=== PATIENT | male | born 1935 | race Caucasian/White ===

== ENCOUNTER 2017-05-08 20:07 | Emergency (ER) | payer MEDICARE, BC ==
--- NOTE | 2017-05-08 21:24 | ER Document Report ---
ED General - General Chief Complaint: Hand Pain Stated Complaint: LEFT HAND PAIN Time Seen by Provider: 05/08/17 21:10 Notes: Patient is an 81-year-old male on clopidogrel who presents with bruising over the dorsum of the left hand. Patient states that this was noted shortly after he came inside after working on his yard for a prolonged period of time. States initially was a small area of swelling at the level of the MCP of the second digit and when he placed ice over the area of bruising then spread to the rest of the hand. Denies any pain to the area. No limited range of motion. No weakness or numbness. No history of similar symptoms in the past. Nothing improves or worsens his symptoms. He has not seen a primary care doctor regarding today's concerns. TRAVEL OUTSIDE OF THE [place] IN LAST 30 DAYS: No - Related Data Allergies/Adverse Reactions: No Known Allergies Allergy (Unverified 05/08/17 20:20) Past Medical History - General Information source: Patient - Social History Smoking Status: Never Smoker Frequency of alcohol use: None Drug Abuse: None Lives with: Family Family History: Reviewed & Not Pertinent Patient has suicidal ideation: No Patient has homicidal ideation: No Renal/ Medical History: Denies: Hx Peritoneal Dialysis Review of Systems - Review of Systems Notes: Constitutional: Negative for fever. HENT: Negative for sore throat. Eyes: Negative for visual changes. Cardiovascular: Negative for chest pain. Respiratory: Negative for shortness of breath. Gastrointestinal: Negative for abdominal pain, vomiting or diarrhea. Genitourinary: Negative for dysuria. Musculoskeletal: Negative for back pain. Skin: Positive for ecchymosis over the dorsum of the left hand Neurological: Negative for headaches, weakness or numbness. 10 point ROS negative except as marked above and in HPI. Physical Exam - Vital signs Vitals: Temp Pulse Resp BP Pulse Ox 97.7 F 84 16 165/97 H 95 05/08/17 20:18 05/08/17 20:18 05/08/17 20:18 05/08/17 20:18 05/08/17 20:18 Interpretation: Hypertensive Notes: PHYSICAL EXAMINATION: GENERAL: Well-appearing, well-nourished and in no acute distress. HEAD: Atraumatic, normocephalic. EYES: sclera anicteric, conjunctiva are normal. ENT: Moist mucous membranes. NECK: Normal range of motion LUNGS: Normal work of breathing HEART: 2+ radial pulses bilaterally EXTREMITIES: no pitting or edema. No cyanosis. RMU sensory motor distribution is intact bilaterally. NEUROLOGICAL: No focal neurological deficits. Moves all extremities spontaneously and on command. PSYCH: Normal mood, normal affect. SKIN: Warm, Dry, normal turgor, there is ecchymosis overlying the dorsum of the left hand Course - Re-evaluation Re-evalutation: 05/08/17 21:22 Patient presents with ecchymosis over the dorsum of the left hand in the setting of clopidogrel use. This consistent with a subcutaneous hematoma likely from a blunt injury versus an overuse injury. He has no limited range of motion, full RMU sensory and motor distribution is intact. X-ray has been obtained does not demonstrate any acute fractures. The area is not warm to the touch and his history does not suggest an acute cellulitis, crotalid bite, or any other significant injury. - Vital Signs Vital signs: Temp Pulse Resp BP Pulse Ox 98.1 F 61 17 152/72 H 95 05/08/17 22:20 05/08/17 22:20 05/08/17 22:20 05/08/17 22:20 05/08/17 22:20 - Diagnostic Test Radiology reviewed: Image reviewed, Reports reviewed Radiology results interpreted by me: 05/08/17 22:08 Left hand x-ray: No acute fracture dislocation Discharge - Discharge Clinical Impression: Spontaneous hematoma of hand Condition: Good Disposition: HOME, SELF-CARE Additional Instructions: The changes in your hand are due to his amount of blood trapped underneath her skin. This is common for patients who are on drugs like Plavix. You can keep the area wrapped and apply ice for 20 minutes every 2 hours while you are awake. This will probably take 3-4 weeks completely resolved. Please return if you develop increasing pain to the area, difficulty moving your fingers, develop a fever greater than 101F, noticed spreading redness from the area or have any other symptoms that are concerning to you. Referrals: RADHA ZHANG MD [Primary Care Provider] - Follow up as needed
--- NOTE | 2017-05-08 21:55 | RADIOLOGY REPORT (SQ) ---
EXAM DESCRIPTION: HAND LEFT 3 VIEWS COMPLETED DATE/TIME: 05/08/2017 9:37 pm REASON FOR STUDY: left hand pain COMPARISON: None. EXAM PARAMETERS: NUMBER OF VIEWS: Three views. TECHNIQUE: AP, lateral and oblique radiographic images acquired of the left hand. LIMITATIONS: None. FINDINGS: MINERALIZATION: Normal. BONES: No acute fracture or dislocation. No worrisome bone lesions. Degenerative changes noted at t he thumb base. There degenerative changes noted in the interphalangeal joint spaces JOINTS: No effusions. SOFT TISSUES: No soft tissue swelling. No foreign body. OTHER: No other significant finding. IMPRESSION: No acute fracture dislocation identified. Degenerative changes noted at the thumb base and scattered throughout the interphalangeal joint spaces. TECHNICAL DOCUMENTATION: JOB ID: [id number] [employer]- All Rights Reserved
[2017-05-08 22:21] VITALS: BP 152/72
== END 2017-05-08 22:30 | disposition home or self-care (01) ==
LOC: ER 20:07
DX: S60.222A Contusion of left hand, initial encounter (principal); X58.XXXA Exposure to other specified factors, initial encounter
CPT/HCPCS: 99283

== ENCOUNTER 2017-12-29 15:16 | Emergency (ER) | payer MEDICARE, BC ==
[2017-12-29] MEDS ORDERED: ACETAMINOPHEN 325 MG TABLET PO ONE (15:25)
--- NOTE | 2017-12-29 15:51 | RADIOLOGY REPORT (SQ) ---
EXAM DESCRIPTION: SHOULDER RIGHT 2 OR MORE VIEWS COMPLETED DATE/TIME: 12/29/2017 3:42 pm REASON FOR STUDY: possible dislocation COMPARISON: None. NUMBER OF VIEWS: Three views right shoulder LIMITATIONS: None. FINDINGS: Superior displacement of the distal clavicle at the AC joint. AC joint relatively maintai rupert in width. Generalized osteopenia without fracture. No evidence of shoulder dislocation. Right lung clear. OTHER: No other significant finding. IMPRESSION: Findings suggesting grade 3 AC separation. TECHNICAL DOCUMENTATION: JOB ID: [id number] Reading location - IP/workstation name: [email or web address]
--- NOTE | 2017-12-29 16:11 | ER Document Report ---
ED Extremity Problem, Upper - General Mode of Arrival: Ambulatory Information source: Patient TRAVEL OUTSIDE OF THE [place] IN LAST 30 DAYS: No <BRADY DAVIS - Last Filed: 12/29/17 22:30> <JM PILLAI - Last Filed: 12/29/17 22:55> - General Chief Complaint: Shoulder Injury Stated Complaint: RIGHT SHOULDER INJURY Time Seen by Provider: 12/29/17 16:00 Notes: Patient is an 82-year-old male that presents to the emergency department today with complaints of right shoulder pain. Patient states he was "cleaning up some trash" at his house when he tripped over something causing him to fall. Patient states he felt a pop in his right shoulder when he fell. Patient states he did not injure anything else during the fall. Patient denies hitting his head or his neck. (BRADY DAVIS) - Related Data Allergies/Adverse Reactions: No Known Allergies Allergy (Unverified 05/08/17 20:20) Past Medical History - General Information source: Patient - Social History Smoking Status: Former Smoker Cigarette use (# per day): No Chew tobacco use (# tins/day): No Frequency of alcohol use: None Drug Abuse: None Lives with: Family Family History: Reviewed & Not Pertinent Patient has suicidal ideation: No Patient has homicidal ideation: No - Past Medical History Cardiac Medical History: Reports: Hx Hypercholesterolemia, Hx Hypertension Endocrine Medical History: Reports: Hx Diabetes Mellitus Type 2 Past Surgical History: Reports: Hx Cardiac Catheterization - stents <BRADY DAVIS - Last Filed: 12/29/17 22:30> Review of Systems - Review of Systems Constitutional: No symptoms reported EENT: No symptoms reported Cardiovascular: No symptoms reported Respiratory: No symptoms reported Gastrointestinal: No symptoms reported Genitourinary: No symptoms reported Male Genitourinary: No symptoms reported Musculoskeletal: See HPI, Joint pain - right shoulder Skin: No symptoms reported Hematologic/Lymphatic: No symptoms reported Neurological/Psychological: No symptoms reported -: Yes All other systems reviewed and negative <BRADY DAVIS - Last Filed: 12/29/17 22:30> Physical Exam <BRADY DAVIS - Last Filed: 12/29/17 22:30> <JM PILLAI - Last Filed: 12/29/17 22:55> - Vital signs Vitals: Temp Pulse Resp BP Pulse Ox 98.0 F 74 16 163/69 H 96 12/29/17 15:28 12/29/17 15:28 12/29/17 15:28 12/29/17 15:28 12/29/17 15:28 - Notes Notes: PHYSICAL EXAM GENERAL: Alert, interacts well. No acute distress. HEAD: Normocephalic, atraumatic. EYES: Pupils equal, round, and reactive to light. Extraocular movements intact. ENT: Oral mucosa moist, tongue midline. NECK: Full range of motion. Supple. Trachea midline. LUNGS: Clear to auscultation bilaterally, no wheezes, rales, or rhonchi. No respiratory distress. HEART: Regular rate and rhythm. No murmurs, gallops, or rubs. ABDOMEN: Soft, non-tender. Non-distended. Bowel sounds present in all 4 quadrants. No guarding, rigidity, or rebound. EXTREMITIES: Able to pronate and supinate RUE without difficulty or pain. Patient able to externally rotate and elevate right shoulder without difficulty , internal rotation not tested. RUE strength 5/5. Right acromioclavicular deformity, no AC joint tenderness with palpation and patient even states that it feels better with palpation, 2+ radial pulses distally, normal sensation distally.No edema. No cyanosis. NEUROLOGICAL: Alert and oriented x3. Normal speech. PSYCH: Normal affect, normal mood. SKIN: Warm, dry, normal turgor. No rashes or lesions noted. (BRADY DAVIS) Course <BRADY DAVIS - Last Filed: 12/29/17 22:30> <JM PILLAI - Last Filed: 12/29/17 22:55> - Re-evaluation Re-evalutation: 12/29/17 16:13 X-ray shows grade 3 AC separation on the right, no evidence of fracture dislocation, physical examination is consistent with this, full range of motion. Patient will be placed in a shoulder immobilizer for comfort, encouraged to do range of motion exercises, referred to orthopedics, given limited prescription for hydrocodone at night. Discharged home. (JM PILLAI) - Vital Signs Vital signs: Temp Pulse Resp BP Pulse Ox 98.4 F 64 18 144/63 H 96 12/29/17 16:46 12/29/17 16:46 12/29/17 16:46 12/29/17 16:46 12/29/17 16:46 Procedures - Immobilization Right Shoulder Pre-Proc Neuro Vasc Exam: Normal Immobilizer type: Shoulder immobilizer Performed by: PCT Post-Proc Neuro Vasc Exam: Normal, Unchanged from pre-exam Alignment checked and good: Yes <JM PILLAI - Last Filed: 12/29/17 22:55> Discharge <BRADY DAVIS - Last Filed: 12/29/17 22:30> <JM PILLAI - Last Filed: 12/29/17 22:55> - Discharge Clinical Impression: Separation of right acromioclavicular joint, type 3 Qualifiers: Encounter type: initial encounter Qualified Code(s): S43.101A - Unspecified dislocation of right acromioclavicular joint, initial encounter Hypertension Qualifiers: Hypertension type: essential hypertension Qualified Code(s): I10 - Essential ( primary) hypertension Condition: Stable Disposition: HOME, SELF-CARE Additional Instructions: AC Joint Sprain The injury to your shoulder caused an acromioclavicular (AC) sprain. This is often called a "shoulder separation," involving the joint between the point of the shoulder-blade and the collarbone. This injury, while quite painful, will usually heal well without any permanent problems. The usual treatment is cold packs and a sling. (In rare cases, a shoulder separation may require surgery.) The shoulder will need to be rested until the pain and swelling decrease. With milder AC sprains, the shoulder can be used again within a few days, although motions such as throwing may be painful for months. The usual guideline is "if it hurts, don't do it." Your physician has assessed the severity of your shoulder separation. It is important that instructions be followed exactly concerning work, sports, and follow-up care. Your treatment plan may change based on the results of further check-ups. You have been given a prescription for narcotic pain medication, this is a narcotic pain medication. It can make you constipated. Use MiraLAX or other similar stool softener to prevent constipation. Do not drive while taking narcotics. Prescriptions: Hydrocodone/Acetaminophen [[place] 5-325 mg Tablet] 1 tab PO Q4HP PRN #10 tablet PRN Reason: For Pain Referrals: RADHA ZHANG MD [Primary Care Provider] - Follow up as needed KARAN MENA MD [ACTIVE STAFF] - Follow up tomorrow (Call first thing in the morning to arrange follow-up appointment.) Scribe Attestation: 12/29/17 22:55 I personally performed the services described in the documentation, reviewed and edited the documentation which was dictated to the scribe in my presence, and it accurately records my words and actions. (JM PILLAI) Scribe Documentation - Scribe Written by Scribe:: John Bedolla, 12/29/2017 2236 acting as scribe for :: Jack <BRADY DAVIS - Last Filed: 12/29/17 22:30>
[2017-12-29 16:47] VITALS: BP 144/63
== END 2017-12-29 16:46 | disposition home or self-care (01) ==
LOC: ER 15:16
DX: S43.101A Unspecified dislocation of right acromioclavicular joint, initial encounter (principal); W01.0XXA Fall on same level from slipping, tripping and stumbling without subsequent striking against object, initial encounter; E78.00 Pure hypercholesterolemia, unspecified; I10 Essential (primary) hypertension
CPT/HCPCS: 99283; 73030; L3650; A9270

== ENCOUNTER 2019-02-08 12:31 | Emergency (ER) | payer MEDICARE, BC ==
[2019-02-08] MEDS ORDERED: CLINDAMYCIN 600 MG/D5W RTU 600 MG/50 ML RTUPB IV ONE (12:49)
--- NOTE | 2019-02-08 12:52 | ER Document Report ---
ED Medical Screen (RME) - General Chief Complaint: Hand Swelling Stated Complaint: RIGHT HAND PAIN, SWELLING Time Seen by Provider: 02/08/19 12:48 Primary Care Provider: RADHA ZHANG MD [Primary Care Provider] - Follow up as needed Mode of Arrival: Ambulatory Information source: Patient Notes: Patient presents with a 2-day history of right hand pain and swelling. Patient with erythema to dorsal aspect of right hand that extends up the forearm with streaking to the right upper arm into the axilla. Patient denies any fever. Patient denies any trauma to the hand. Patient states that he may have been bit by an insect possibly. hx: Hypertension, dyslipidemia, hypothyroid, BPH I have greeted and performed a rapid initial assessment of this patient. A comp rehensive ED assessment and evaluation of the patient, analysis of test results and completion of the medical decision making process will be conducted by additional ED providers. TRAVEL OUTSIDE OF THE [place] IN LAST 30 DAYS: No - Related Data Allergies/Adverse Reactions: No Known Allergies Allergy (Verified 02/08/19 12:32) Past Medical History - Social History Chew tobacco use (# tins/day): No Frequency of alcohol use: None Drug Abuse: None - Past Medical History Cardiac Medical History: Reports: Hx Hypercholesterolemia, Hx Hypertension Endocrine Medical History: Reports: Hx Diabetes Mellitus Type 2 Renal/ Medical History: Denies: Hx Peritoneal Dialysis Past Surgical History: Reports: Hx Cardiac Catheterization - stents Physical Exam - Vital signs Vitals: Temp Pulse Resp BP Pulse Ox 97.6 F 76 18 159/61 H 95 02/08/19 12:35 02/08/19 12:35 02/08/19 12:35 02/08/19 12:35 02/08/19 12:35 - Extremities General upper extremity: Tender, Edema. No: Normal color - Erythema, tenderness, swelling to right upper extremity with lymphangitic streaking to the right upper arm Course - Vital Signs Vital signs: Temp Pulse Resp BP Pulse Ox 97.6 F 76 18 159/61 H 95 02/08/19 12:35 02/08/19 12:35 02/08/19 12:35 02/08/19 12:35 02/08/19 12:35 Doctor's Discharge - Discharge Referrals: RADHA ZHANG MD [Primary Care Provider] - Follow up as needed
[2019-02-08 13:43] LABS: ABSOLUTE EOSINOPHILS # (AUTO) 0.2 10^3/uL (0.0-0.6); ABSOLUTE LYMPHOCYTES (AUTO) 2.5 10^3/uL (0.5-4.7); ABSOLUTE MONOCYTES (AUTO) 0.6 10^3/uL (0.1-1.4); ABSOLUTE NEUT (AUTO) 5.8 10^3/uL (1.7-8.2); BASOPHILS % (AUTO) 0.4 % (0-2); EOSINOPHILS % (AUTO) 1.8 % (0-6); HEMOGLOBIN 13.8 g/dL (13.5-17.0); LYMPHOCYTES % (AUTO) 27.3 % (13-45); MEAN CORPUSCULAR HEMOGLOBIN 29.8 pg (27.0-33.4); MEAN CORPUSCULAR HGB CONC 34.4 g/dL (32.0-36.0); MEAN CORPUSCULAR VOLUME 87 fl (80-97); MONOCYTES % (AUTO) 6.4 % (3-13); PLATELET COUNT 160 10^3/uL (150-450); RED BLOOD COUNT 4.62 10^6/uL (4.35-5.55); RED CELL DISTRIBUTION WIDTH 14.4 % (11.5-14.0); SEGMENTED NEUTROPHILS % (AUTO) 64.1 % (42-78); TOTAL CELLS COUNTED % (AUTO) 100 %; WHITE BLOOD COUNT 9.1 10^3/uL (4.0-10.5)
[2019-02-08 13:51] LABS: ANION GAP 9 (5-19); BLOOD UREA NITROGEN 13 mg/dL (7-20); CARBON DIOXIDE 31 mmol/L (22-30); CHLORIDE 100 mmol/L (98-107); GLUCOSE 181 mg/dL (75-110); POTASSIUM 3.2 mmol/L (3.6-5.0); SODIUM 139.5 mmol/L (137-145)
--- NOTE | 2019-02-08 13:57 | ER Document Report ---
ED Extremity Problem, Upper - General Chief Complaint: Hand Swelling Stated Complaint: RIGHT HAND PAIN, SWELLING Time Seen by Provider: 02/08/19 12:48 Primary Care Provider: RADHA ZHANG MD [Primary Care Provider] - Follow up tomorrow Mode of Arrival: Ambulatory Notes: Patient says that his right hand and forearm have become red and swollen over the past couple of days. Patient is right-hand dominant. He awakened from sleep and noticed that he had what looked like a bruise on the dorsal aspect of his right hand, near the distal fourth metacarpal. On Saturday, patient noticed that the area was beginning to turn red and swell and its continue to swell since then. Has never had anything like this before. Not aware of any breaks in the skin. Does not recall any possible insect bite or sting. The area does not itch, it is only painful if he holds his hand down. Has not been aware of any fever. Patient is a qst-frthpti-muzwpffun diabetic. Takes baby aspirin for thinning his blood. TRAVEL OUTSIDE OF THE [place] IN LAST 30 DAYS: No - Related Data Allergies/Adverse Reactions: No Known Allergies Allergy (Verified 02/08/19 12:32) Past Medical History - General Information source: Patient - Social History Smoking Status: Former Smoker Chew tobacco use (# tins/day): No Frequency of alcohol use: None Drug Abuse: None Family History: Reviewed & Not Pertinent Patient has suicidal ideation: No Patient has homicidal ideation: No - Past Medical History Cardiac Medical History: Reports: Hx Hypercholesterolemia, Hx Hypertension Endocrine Medical History: Reports: Hx Diabetes Mellitus Type 2, Hx Hypothyroidism Renal/ Medical History: Reports: Other - State problems. Past Surgical History: Reports: Hx Cardiac Catheterization - stents Review of Systems - Review of Systems Notes: REVIEW OF SYSTEMS: CONSTITUTIONAL : Denies fever. EENT: Denies eye, ear, nose or mouth or throat pain or other symptoms. RESPIRATORY: Denies cough, chest congestion, or shortness of breath. GASTROINTESTINAL: Denies abdominal pain or nausea, vomiting, or diarrhea. MUSCULOSKELETAL: Denies back or neck pain. Denies joint pain or swelling. SKIN: See HPI. NEUROLOGICAL: Denies LOC or altered mental status. Denies headache. Denies sensory loss or motor deficits. ALL OTHER SYSTEMS REVIEWED AND NEGATIVE. Physical Exam - Vital signs Vitals: Temp Pulse Resp BP Pulse Ox 97.6 F 76 18 159/61 H 95 02/08/19 12:35 02/08/19 12:35 02/08/19 12:35 02/08/19 12:35 02/08/19 12:35 Interpretation: Normal. No: Febrile Notes: PHYSICAL EXAMINATION: GENERAL: Well-appearing, no acute distress. HEAD: Atraumatic, normocephalic. NECK: Normal range of motion, supple. LUNGS: Breath sounds clear and equal bilaterally. HEART: Regular rate and rhythm without murmurs heard. ABDOMEN: Soft, nontender. No guarding or rebound or masses felt. Patient's dorsal right hand is significantly swollen and edematous with generalized erythema and warmth to the touch. This swelling and edema and erythema extends up the forearm to just below the elbow. There is no fluctuance noted. No cuts or scrapes of this area that would allow for bacterial entry. Nothing that appears to be an insect bite noted. Patient says the arm and hand do not itch. Has never had anything like this previously. Excellent pulses in the patient's radial artery and excellent capillary refill. Patient has a history of fso-wftkdyt-ulhccqiiw diabetes. Only blood thinner medications she takes is aspirin. Course - Re-evaluation Re-evalutation: 02/08/19 18:46 Patient was given 600 mg of clindamycin IV. I called Dr. Zhang and described the patient's findings and ask if he could see the patient for follow-up tomorrow. He says to have the patient there at 8:30 AM tomorrow morning. Lab studies were all essentially normal. Potassium level of 3.2 noted. - Vital Signs Vital signs: Temp Pulse Resp BP Pulse Ox 98.3 F 64 16 115/59 L 97 02/08/19 15:37 02/08/19 15:37 02/08/19 15:37 02/08/19 15:37 02/08/19 15:37 - Laboratory Result Diagrams: 02/08/19 13:09 02/08/19 13:09 Laboratory results interpreted by me: 02/08/19 02/08/19 13:09 13:09 RDW 14.4 H Potassium 3.2 L Carbon Dioxide 31 H Glucose 181 H - Diagnostic Test Radiology reviewed: Image reviewed, Reports reviewed - Ultrasound of the right upper extremity shows edema but no other findings. No collection of fluid. Discharge - Discharge Clinical Impression: Cellulitis of right hand excluding fingers and thumb Condition: Stable Disposition: HOME, SELF-CARE Additional Instructions: CELLULITIS: You have an infection of your skin and underlying soft tissues called cellulitis. This is due to bacteria, which can enter through any break in the skin, or even through an irritated hair follicle. Untreated, cellulitis will usually worsen. Antibiotics are required. Usually, warm packs or warm soaks, and elevation of the infected area are recommended. You should start getting better within 24 to 36 hours. Most infections respond quickly to the right medication. Follow-up care is important, however, to check for abscess (boil) formation, unsuspected foreign body, or resistant infection. If you develop fever, chills, or if the area of infection is becoming rapidly more swollen or painful, call the doctor at once. MRSA CELLULITIS: You have an infection of your skin and underlying soft tissues called cellulitis. This is due to bacteria, which can enter through any break in the skin, or even through an irritated hair follicle. Untreated, cellulitis will usually worsen and may form an abscess which requires draining. Although many bacterial organisms can cause cellulitis and abscess formations, the most likely bacteria is Methicillin-Resistant Staph Aureus, or MRSA for short. Antibiotics are required. Usually, warm packs or warm soaks, and elevation of the infected area are recommended. You should start getting better within 24 to 36 hours. Most infections respond quickly to the right medication. Follow-up care is important, however, to check for abscess (boil) formation, unsuspected foreign body, or resistant infection. If you develop fever, chills, or if the area of infection is becoming rapidly more swollen or painful, call the doctor at once. ANTIBIOTIC THERAPY: You have been given an antibiotic prescription. It's important that you take all the medication, unless instructed otherwise by your physician. Failure to complete the entire course can result in relapse of your condition. Common side effects of antibiotics include nausea, intestinal cramping, or diarrhea. Women may develop vaginal yeast infections, and babies can get yeast (thrush) in the mouth following the use of antibiotics. Contact your physician if you develop significant side effects from this medication. Allergy to this antibiotic can result in hives, wheezing, faintness, or itching. If symptoms of allergy occur, stop the medication and call the doctor. CLINDAMYCIN: You have been given a prescription for the antibiotic clindamycin. It is often prescribed for infections in the mouth, such as dental infections or abscesses, and for skin infections due to MRSA. It's important that you take all the medication, unless instructed otherwise by your physician. Failure to complete the entire course can result in relapse of your condition. Common side effects of antibiotics include nausea, intestinal cramping, or diarrhea. Women may develop vaginal yeast infections, and babies can get yeast (thrush) in the mouth following the use of antibiotics. Contact your physician if you develop significant side effects from this medication. Allergy to this antibiotic can result in hives, wheezing, faintness, or itching. If symptoms of allergy occur, stop the medication and call the doctor. FOLLOW-UP CARE: If you have been referred to a physician for follow-up care, call the [facility] office for an appointment as you were instructed or within the next two days. If you experience worsening or a significant change in your symptoms, notify the physician immediately or return to the Emergency Department at any time for re-evaluation. I have spoken with Dr. Rizo and he wishes to see you in his office at 8:30 am tomorrow morning to assess the results of the antibiotic we have prescribed. Prescriptions: Clindamycin HCl 300 mg PO QID #28 capsule Referrals: RADHA ZHANG MD [Primary Care Provider] - Follow up tomorrow
--- NOTE | 2019-02-08 14:33 | RADIOLOGY REPORT (SQ) ---
EXAM DESCRIPTION: U/S EXTREMITY NONVASCULAR LTD COMPLETED DATE/TIME: 02/08/2019 2:21 pm REASON FOR STUDY: R hand pain, swelling, ?abscess COMPARISON: Plain radiograph TECHNIQUE: Dynamic and static grayscale images acquired of the localized site of clinical concern an d recorded on PACS. Additional selected color Doppler and spectral images recorded. SITE OF CONCERN: Right hand LIMITATIONS: None. FINDINGS: SKIN AND SUBCUTANEOUS TISSUES: Extensive edema. No fluid collections. DEEP SOFT TISSUES/MUSCLES: No masses. No fluid collections. No edema. VASCULAR: No increased or decreased vascularity. No occlusions. OTHER: No other significant finding. IMPRESSION: Extensive edema. No fluid collections. TECHNICAL DOCUMENTATION: JOB ID: [id number] [employer]- All Rights Reserved Reading location - IP/workstation name: [email or web address]
[2019-02-08 15:39] VITALS: BP 115/59
== END 2019-02-08 15:45 | disposition home or self-care (01) ==
LOC: ER 12:31
DX: L03.113 Cellulitis of right upper limb (principal); E78.00 Pure hypercholesterolemia, unspecified; I10 Essential (primary) hypertension; E11.9 Type 2 diabetes mellitus without complications; E03.9 Hypothyroidism, unspecified
CPT/HCPCS: 36415; 76882; 80048; 85025; 87040; 96365; 99284

== ENCOUNTER 2020-08-01 10:37 | Inpatient (IN) | payer MEDICARE, BC ==
[2020-08-01 12:19] LABS: ABSOLUTE LYMPHOCYTES (AUTO) 1.5 10^3/uL (0.5-4.7); ABSOLUTE MONOCYTES (AUTO) 0.6 10^3/uL (0.1-1.4); ABSOLUTE NEUT (AUTO) 3.3 10^3/uL (1.7-8.2); BASOPHILS % (AUTO) 0.4 % (0-2); EOSINOPHILS % (AUTO) 0.3 % (0-6); HEMATOCRIT 36.8 % (37.9-51.0); HEMOGLOBIN 12.9 g/dL (13.5-17.0); LYMPHOCYTES % (AUTO) 27.5 % (13-45); MEAN CORPUSCULAR HEMOGLOBIN 29.5 pg (27.0-33.4); MEAN CORPUSCULAR HGB CONC 35.1 g/dL (32.0-36.0); MEAN CORPUSCULAR VOLUME 84 fl (80-97); MONOCYTES % (AUTO) 11.5 % (3-13); PLATELET COUNT 135 10^3/uL (150-450); RED BLOOD COUNT 4.38 10^6/uL (4.35-5.55); RED CELL DISTRIBUTION WIDTH 14.5 % (11.5-14.0); SEGMENTED NEUTROPHILS % (AUTO) 60.3 % (42-78); TOTAL CELLS COUNTED % (AUTO) 100 %; WHITE BLOOD COUNT 5.4 10^3/uL (4.0-10.5)
--- NOTE | 2020-08-01 12:30 | ER Document Report ---
ED General - General Chief Complaint: Shortness Of Breath Stated Complaint: COUGH,CONGESTION Time Seen by Provider: 08/01/20 11:33 Primary Care Provider: RADHA ZHANG MD [Primary Care Provider] - Follow up as needed Notes: HPI: 84-year-old male who presents today with the onset around 5 days ago of some runny nose, mild nonproductive cough, and some shortness of breath. He denies any headache, sore throat, neck pain, chest pain, abdominal pain, calf pain or leg swelling. He denies any dysuria or flank pain. When the patient arrived he was slightly febrile with atrial fibrillation with rapid ventricular response. Patient spontaneously converted. Heart rate currently 83. Patient states he has had no contacts with coronavirus patients that he is aware of. Patient does have a history of intermittent atrial fibrillation. ROS: See HPI All other review of systems reviewed and otherwise negative Reviewed vital signs and nursing note as charted by RN. PHYSICAL EXAM: CONSTITUTIONAL: Alert and oriented and responds appropriately to questions. Well-appearing; well-nourished HEAD: Normocephalic; atraumatic EYES: PERRL; Conjunctivae clear, sclerae non-icteric ENT: Normal nose; no rhinorrhea; moist mucous membranes; pharynx without lesions noted NECK: Supple without meningismus; non-tender; no cervical lymphadenopathy, no masses CARD: Regular rate and rhythm; no murmurs; symmetric distal pulses RESP: Normal chest excursion without splinting or tachypnea; breath sounds clear and equal bilaterally; no wheezes, no rhonchi, no rales ABD/GI: Normal bowel sounds; non-distended; soft, non-tender to deep palpation of all 4 quadrants of the abdomen BACK: The back appears normal and is non-tender to palpation EXT: Normal ROM in all joints; non-tender to palpation; no edema SKIN: No acute lesions noted NEURO: CN 2-12 intact; 5/5 bilateral upper and lower extremity strength with sensation intact to light touch PSYCH: The patient's mood and manner are appropriate. Grooming and personal hygiene are appropriate. TRAVEL OUTSIDE OF THE [place] IN LAST 30 DAYS: No - Related Data Allergies/Adverse Reactions: No Known Allergies Allergy (Verified 02/08/19 12:32) Past Medical History - Social History Smoking Status: Former Smoker Chew tobacco use (# tins/day): No Frequency of alcohol use: None Drug Abuse: None Family History: CAD, CVA, Hypertension Patient has homicidal ideation: No - Past Medical History Cardiac Medical History: Reports: Hx Hypercholesterolemia, Hx Hypertension Endocrine Medical History: Reports: Hx Diabetes Mellitus Type 2, Hx Hypothyroid ism Renal/ Medical History: Denies: Hx Peritoneal Dialysis Psychiatric Medical History: Denies: Hx Depression Past Surgical History: Reports: Hx Cardiac Catheterization - stents, Hx Orthopedic Surgery - back Physical Exam - Vital signs Vitals: Temp 100.3 F 08/01/20 10:38 Course - Re-evaluation Re-evalutation: Given the above history and physical we will place the patient on the monitor and obtain an x-ray of the chest, cardiac panel, blood cultures, lactic acid, urine analysis, and reassess. We would like to assess for the possibility of coronavirus, bacteremia, urinary tract infection, or pneumonia. Heart rate is currently 83 with a stable blood pressure. I do believe acute bacterial meningitis with the lack of any headache or neck pain to be extremely unlikely for this duration of time. 08/01/20 12:29 Labs as recorded. No change in exam. 08/01/20 16:34 X-ray as recorded so a CT scan was performed. CT scan shows the possibility of a multifocal pneumonia versus coronavirus infection. Patient's heart rate is now stable. I have provided a beta-marco a. Currently the heart rate is 95. Patient is satting around 92 to 93% on room air. - Vital Signs Vital signs: Temp Pulse Resp BP Pulse Ox 100.3 F 159 H 27 H 123/65 95 08/01/20 11:02 08/01/20 11:02 08/01/20 13:01 08/01/20 13:01 08/01/20 12:01 - Laboratory Result Diagrams: 08/01/20 11:15 08/01/20 11:55 Laboratory results interpreted by me: 08/01/20 08/01/20 08/01/20 11:15 11:55 11:55 Hgb 12.9 L Hct 36.8 L RDW 14.5 H Plt Count 135 L Sodium 131.9 L Potassium 2.9 L* Chloride 91 L Carbon Dioxide 32 H Glucose 131 H NT-Pro-B Natriuret Pep 1090 H Total Protein 6.1 L Albumin 3.4 L Urine Protein Urine Glucose (UA) Urine Blood 08/01/20 13:10 Hgb Hct RDW Plt Count Sodium Potassium Chloride Carbon Dioxide Glucose NT-Pro-B Natriuret Pep Total Protein Albumin Urine Protein 30 H Urine Glucose (UA) 150 H Urine Blood SMALL H Discharge - Discharge Clinical Impression: Lung infiltrate on CT, Atrial fibrillation with RVR Fever Qualifiers: Fever type: unspecified Qualified Code(s): R50.9 - Fever, unspecified Condition: Fair Disposition: ADMITTED INPATIENT Admitting Provider: Meron (Hospitalist) Unit Admitted: Medical Floor Referrals: RADHA ZHANG MD [Primary Care Provider] - Follow up as needed
--- NOTE | 2020-08-01 12:31 | RADIOLOGY REPORT (SQ) ---
EXAM DESCRIPTION: CHEST SINGLE VIEW IMAGES COMPLETED DATE/TIME: 08/01/2020 12:22 pm REASON FOR STUDY: SOB; cough COMPARISON: 02/12/2019 EXAM PARAMETERS: NUMBER OF VIEWS: One view. TECHNIQUE: Single frontal radiographic view of the chest acquired. RADIATION DOSE: NA LIMITATIONS: None. FINDINGS: LUNGS AND PLEURA: Pleural-based airspace disease or possibly mass has developed on the lef t since prior study. Lung gilbert are otherwise clear. No pneumothorax or effusion. Overall size is 2.9 x 7.1 cm. MEDIASTINUM AND HILAR STRUCTURES: No masses. Contour normal. HEART AND VASCULAR STRUCTURES: Unchanged. BONES: No acute findings. HARDWARE: None in the chest. OTHER: No other significant finding. IMPRESSION: Left-sided pleural based mass versus peripheral infiltrate. This is new from prior stud y. CT of the chest is recommended for further evaluation. TECHNICAL DOCUMENTATION: JOB ID: [id number] 2010 [employer]- All Rights Reserved Reading location - IP/workstation name: [email or web address]
[2020-08-01 12:48] LABS: ALBUMIN 3.4 g/dL (3.5-5.0); ALKALINE PHOSPHATASE 49 U/L (38-126); ASPARTATE AMINO TRANSFERASE 40 U/L (17-59); CARBON DIOXIDE 32 mmol/L (22-30); TOTAL PROTEIN 6.1 g/dL (6.3-8.2)
[2020-08-01 12:50] LABS: ANION GAP 9 (5-19); CHLORIDE 91 mmol/L (98-107)
[2020-08-01 12:51] LABS: BILIRUBIN,DIRECT 0.2 mg/dL (0.0-0.4); BLOOD UREA NITROGEN 14 mg/dL (7-20); CALCIUM 8.6 mg/dL (8.4-10.2); GLUCOSE 131 mg/dL (75-110)
[2020-08-01 12:56] LABS: POTASSIUM 2.9 mmol/L (3.6-5.0)
[2020-08-01] MEDS ORDERED: NORMAL SALINE 1000 ML 1,000 ML IV ONE (12:56)
[2020-08-01] MEDS ORDERED: POTASSI CL 20 MEQ/50 ML RIDER 20 MEQ/50 ML RTUPB IV ONE ×2 (12:56→18:30)
[2020-08-01 13:30] LABS: APPEARANCE,URINE CLEAR; BILIRUBIN,URINE NEGATIVE (NEGATIVE); COLOR,URINE YELLOW; GLUCOSE, URINE 150 mg/dL (NEGATIVE); KETONES,URINE NEGATIVE (NEGATIVE); LEUKOCYTE ESTERASE,URINE NEGATIVE (NEGATIVE); NITRITE,URINE NEGATIVE (NEGATIVE); PROTEIN,URINE 30 mg/dL (NEGATIVE); URINE SPECIFIC GRAVITY 1.015; UROBILINOGEN,URINE NEGATIVE mg/dL (<2.0)
[2020-08-01] MEDS ORDERED: CEFTRIAXONE 1 GM/D5W RTU 1 GM/50 ML RTUPB IV ONE (13:34)
[2020-08-01] MEDS ORDERED: AZITHROMYCIN INJ 500 MG VIAL IV ONE (13:34)
[2020-08-01 14:28] LABS: TROPONIN I 0.051 ng/mL
[2020-08-01] MEDS ORDERED: ASPIRIN 325 MG TABLET PO ONE (14:29)
[2020-08-01] MEDS ORDERED: METOPROLOL TARTRATE 50 MG TABLET PO ONE (16:34)
[2020-08-01] MEDS ORDERED: DEXAMETHASONE SOD PHOS INJ 10 MG/1 ML VIAL PO ONE (16:40)
--- NOTE | 2020-08-01 16:44 | RADIOLOGY REPORT (SQ) ---
EXAM DESCRIPTION: CTA CHEST IMAGES COMPLETED DATE/TIME: 08/01/2020 4:30 pm REASON FOR STUDY: 7; fever with mass COMPARISON: None. TECHNIQUE: CT scan of the chest performed using helical scanning technique with dynamic intravenous contrast injection. Images reviewed with lung, soft tissue and bone windows. Reconstructed coronal and sagittal MPR images reviewed. Additional 3 dimensional post-processing performed to develop Maximal Intensity Projection images (AL P). All images stored on PACS. All CT scanners at this facility use dose modulation, iterative reconstruction, and/or weight based d osing when appropriate to reduce radiation dose to as low as reasonably achievable (ALARA). [facility]: Dose Right [facility]: CareDose [facility]: Dose Right [facility]: Teradose 4D [facility]: Sleep.FM CONTRAST TYPE AND DOSE: contrast/concentration: Isovue 350.00 mmol/ml; Total Contrast Delivered: 75. 0 ml; Total Saline Delivered: 75.0 ml RENAL FUNCTION: GFR > 60. RADIATION DOSE: CT Rad equipment meets quality standard of care and radiation dose reduction techniq ues were employed. CTDIvol: 3.3 - 16.0 mGy. DLP: 612 mGy-cm. . LIMITATIONS: None. FINDINGS: LUNGS AND PLEURA: Subsegmental ground-glass opacities in the left upper lobe, left lower l obe and to lesser degree the right lower lobe and perifissural right upper lobe. No evidence of cavi tation. No effusions. AORTA AND GREAT VESSELS: No aneurysm. No dissection. HEART: No pericardial effusion. PULMONARY ARTERIES: No emboli visualized in the main pulmonary arteries or the segmental branches. HILAR AND MEDIASTINAL STRUCTURES: No identified masses or abnormal nodes. HARDWARE: None in the chest. UPPER ABDOMEN: No significant findings. Limited exam. THYROID AND OTHER SOFT TISSUES: No masses. No adenopathy. BONES: No acute or significant finding. 3D MIPS: Confirm above findings. OTHER: No other significant finding. IMPRESSION: 1. No PE. 2. Bilateral pneumonia. Findings discussed with Dr. Hernandes at 1628 hours. COMMENT: Commonly reported imaging features of COVID-19 pneumonia are present. Other processes suc h as influenza pneumonia and organizing pneumonia, as can be seen with drug toxicity and connective t issue disease, can cause a similar imaging pattern. [facility] Quality ID # [id number]: Final reports with documentation of one or more dose reduction techniques (e.g., Au tomated exposure control, adjustment of the mA and/or kV according to patient size, use of iterative reconstruction technique) TECHNICAL DOCUMENTATION: JOB ID: [id number] 2010 [employer] All Rights Reserved Reading location - IP/workstation name: [email or web address]
[2020-08-01] MEDS ORDERED: ACETAMINOPHEN 325 MG TABLET ONE (16:54)
[2020-08-01] MEDS ORDERED: ASPIRIN 325 MG TABLET ONE (16:55)
--- NOTE | 2020-08-01 17:27 | PDOC H&P ---
History of Present Illness Admission Date/PCP: 08/01/20 17:09 RADHA ZHANG MD History of Present Illness: ILIA GAYTAN is a 84 year old male past medical history of paroxysmal A. fib not anticoagulated, hypertension, prediabetes, hyperlipidemia, hypothyroidism, CAD, presented to ED complaining of productive cough starting last week, patient has been checking his temperature at home, stating that it runs between 99-100, denies any chills,any exposure to anybody with COVID-19 in fection, denies any recent immobilization or recent hospitalization, reporting mild prolonged chest pain induced by coughing, denies any nausea, vomiting, abdominal pain, diarrhea, constipation, numbness, tingling, headache or any urinary symptoms. In ED was noted to be in A. fib RVR which spontaneously converted back to sinus rhythm, a CTA chest showed multifocal pneumonia. Hospitalist was consulted for admission. Past Medical History Cardiac Medical History: Reports: Hyperlipidema, Hypertension Endocrine Medical History: Reports: Diabetes Mellitus Type 2, Hypothyroidism Psychiatric Medical History: Denies: Depression Past Surgical History Past Surgical History: Reports: Cardiac Catheterization - stents, Orthopedic Surgery - back Social History Smoking Status: Former Smoker Electronic Cigarette use?: No Frequency of Alcohol Use: None Hx Recreational Drug Use: No Drugs: None Hx Prescription Drug Abuse: No Family History Family History: CAD, CVA, Hypertension Parental Family History Reviewed: Yes Children Family History Reviewed: Yes Sibling(s) Family History Reviewed.: Yes Medication/Allergy Home Medications: Alfuzosin HCl [Alfuzosin HCl ER] 10 mg PO QAM 02/12/19 Amlodipine Besylate [Norvasc 10 mg Tablet] 10 mg PO QAM 02/12/19 Aspirin [Aspirin 81 mg Chewable Tablet] 81 mg PO QAM 02/12/19 Atorvastatin Calcium [Lipitor 40 mg Tablet] 40 mg PO QAM 02/12/19 Clindamycin HCl [Cleocin 300 mg Capsule] 300 mg PO QID 02/12/19 Cyanocobalamin (Vitamin B-12) [Vitamin B-12 1000 mcg Tablet] 1,000 mcg PO QAM 02/12/19 Finasteride [Proscar 5 mg Tablet] 5 mg PO QAM 02/12/19 Levothyroxine Sodium [Synthroid 0.025 mg Tablet] 0.025 mg PO Q6AM 02/12/19 Losartan Potassium [Cozaar 100 mg Tablet] 100 mg PO QAM 02/12/19 Metformin HCl [Glucophage 500 mg Tablet] 1,000 mg PO WSUPPER 02/12/19 Iona-3S/Dha/Epa/Fish Oil [Fish Oil 1,200 mg Softgel] 1 cap PO QAM 02/12/19 Potassium Chloride [Klor-Con M10] 20 meq PO QAM 02/12/19 Allergies/Adverse Reactions: No Known Allergies Allergy (Verified 02/08/19 12:32) Review of Systems All systems: reviewed and no additional remarkable complaints except as stated Review of Systems: as per hpi Physical Exam Vital Signs: Temp Pulse Resp BP Pulse Ox 100.3 F 159 H 16 155/71 H 93 08/01/20 11:02 08/01/20 11:02 08/01/20 15:01 08/01/20 15:01 08/01/20 15:01 Intake & Output 07/31/20 08/01/20 08/02/20 06:59 06:59 06:59 Intake Total 1100 Balance 1100 Weight 87.9 kg General appearance: PRESENT: no acute distress, obese, well-developed, well- nourished Respiratory exam: PRESENT: crackles. ABSENT: rales, rhonchi, wheezes Cardiovascular exam: PRESENT: RRR. ABSENT: diastolic murmur, rubs, systolic murmur GI/Abdominal exam: PRESENT: normal bowel sounds, soft. ABSENT: distended, guar ding, mass, organolmegaly, rebound, tenderness Neurological exam: PRESENT: alert, awake, oriented to person, oriented to place, oriented to time, oriented to situation, CN II-XII grossly intact. ABSENT: motor sensory deficit Results Laboratory Results: 08/01/20 11:15 08/01/20 11:55 08/01/20 08/01/20 08/01/20 11:15 11:55 11:55 WBC 5.4 RBC 4.38 Hgb 12.9 L Hct 36.8 L MCV 84 MCH 29.5 MCHC 35.1 RDW 14.5 H Plt Count 135 L Seg Neutrophils % 60.3 Sodium 131.9 L Potassium 2.9 L* Chloride 91 L Carbon Dioxide 32 H Anion Gap 9 BUN 14 Creatinine 0.75 Est GFR ( Amer) > 60 Glucose 131 H Lactic Acid 1.6 Calcium 8.6 Total Bilirubin 1.0 AST 40 Alkaline Phosphatase 49 Total Protein 6.1 L Albumin 3.4 L Urine Color Urine Appearance Urine pH Ur Specific [place] Urine Protein Urine Glucose (UA) Urine Ketones Urine Blood Urine Nitrite Ur Leukocyte Esterase Urine WBC (Auto) Urine RBC (Auto) 08/01/20 13:10 WBC RBC Hgb Hct MCV MCH MCHC RDW Plt Count Seg Neutrophils % Sodium Potassium Chloride Carbon Dioxide Anion Gap BUN Creatinine Est GFR ( Amer) Glucose Lactic Acid Calcium Total Bilirubin AST Alkaline Phosphatase Total Protein Albumin Urine Color YELLOW Urine Appearance CLEAR Urine pH 5.0 Ur Specific [place] 1.015 Urine Protein 30 H Urine Glucose (UA) 150 H Urine Ketones NEGATIVE Urine Blood SMALL H Urine Nitrite NEGATIVE Ur Leukocyte Esterase NEGATIVE Urine WBC (Auto) 1 Urine RBC (Auto) 1 08/01/20 11:55 Troponin I 0.051 NT-Pro-B Natriuret Pep 1090 H Impressions: Chest X-Ray 08/01/20 11:39 IMPRESSION: Left-sided pleural based mass versus peripheral infiltrate. This is new from prior study. CT of the chest is recommended for further evaluation. Chest/Abdomen CTA 08/01/20 13:33 IMPRESSION: 1. No PE. 2. Bilateral pneumonia. Findings discussed with Dr. Hernandes at 1628 hours. Assessment and Plan - Diagnosis (1) Multifocal pneumonia Is this a current diagnosis for this admission?: Yes Plan: Likely community-acquired caused by gram-positives including Streptococcus pneumonia, COVID-19 pneumonia is also possibility. Broad-spectrum empiric IV antibiotics, Remesivir, zinc sulfate, vitamin D, vitamin C, flutter valve, incentive spirometry, pulmonary toileting. We will obtain inflammatory markers. Sputum and blood culture. (2) Paroxysmal atrial fibrillation Is this a current diagnosis for this admission?: Yes Plan: History of paroxysmal A. fib, not anticoagulated. Spontaneously converted. Admit to telemetry, continue beta-blockers, outpatient PCP and cardiology follow-up. (3) Hypertension Qualifiers: Hypertension type: essential hypertension Qualified Code(s): I10 - Essential (primary) hypertension Is this a current diagnosis for this admission?: Yes Plan: Euvolemic. Normotensive. Resume home meds. Adjust meds as needed. Outpatient PCP follow-up. (4) Prediabetes Is this a current diagnosis for this admission?: Yes Plan: Hemoglobin A1c 6.2. On Metformin at home. Diabetic diet, sliding scale insulin, Accu-Chek, hypoglycemia protocol. Resume home meds upon discharge. Outpatient PCP follow-up. (5) Hypothyroidism Qualifiers: Hypothyroidism type: acquired Qualified Code(s): E03.9 - Hypothyroidism, unspecified Is this a current diagnosis for this admission?: Yes Plan: Resume home meds. Will obtain TSH. (6) Elevated troponin Is this a current diagnosis for this admission?: Yes Plan: History of CAD, denies any anginal symptoms, mildly elevated troponins and proBNP. Likely due to demand mismatch. Admit to telemetry, antiplatelets, ARB, statins, trend troponins. (7) Hypokalemia Is this a current diagnosis for this admission?: Yes Plan: No acute EKG changes. Hypokalemia protocol. - Time Time Spent with patient: 35 or more minutes Anticipated Discharge Disposition: Home with Home Health Anticipated Discharge Timeframe: within 72 hours
[2020-08-01] MEDS ORDERED: AZITHROMYCIN 250 MG TABLET PO ONE (17:29)
[2020-08-01] MEDS ORDERED: NORMAL SALINE 1000 ML 1,000 ML IV PRN (17:29)
[2020-08-01] MEDS ORDERED: OXYCODONE-ACETAMINOPHEN 5-325 MG TABLET PO PRN (17:29)
[2020-08-01] MEDS ORDERED: TEMAZEPAM 7.5 MG CAPSULE PO PRN (17:29)
[2020-08-01] MEDS ORDERED: MAGNESIUM HYDROXIDE SUSP 30 ML UDCUP PO PRN (17:29)
[2020-08-01] MEDS ORDERED: MAG HYDROX/AL HYDROX/SIMETH SUSP 30 ML UDCUP PO PRN (17:29)
[2020-08-01] MEDS ORDERED: PROMETHAZINE HCL INJ 25 MG/1 ML VIAL IV PRN (17:29)
[2020-08-01] MEDS ORDERED: ACETAMINOPHEN 650 MG SUPP.RECT PR PRN (17:29)
[2020-08-01] MEDS ORDERED: ONDANSETRON HCL INJ/PF 4 MG/2 ML SDV IV PRN (17:29)
[2020-08-01] MEDS ORDERED: IPRATROPIUM/ALBUTEROL 0.5-2.5 MG/3 ML AMPUL NEB PRN (17:29)
[2020-08-01] MEDS ORDERED: ACETAMINOPHEN 325 MG TABLET PO PRN (17:29)
[2020-08-01] MEDS ORDERED: ASPIRIN 81 MG TABLET, CHEWABLE PO SCH (17:45)
[2020-08-01] MEDS: CHOLECALCIFEROL (D3) 1,000 UNIT (25 MCG) TABLET PO SCH (19:00)
[2020-08-01] MEDS: ZINC SULFATE 220 MG CAPSULE PO SCH (19:01)
[2020-08-01] MEDS: ASCORBIC ACID 500 MG TABLET PO SCH (19:01)
[2020-08-01] MEDS: ASPIRIN 81 MG TABLET, ENT COATED PO SCH (19:09)
--- NOTE | 2020-08-01 19:55 | EKG REPORT ---
SEVERITY:- ABNORMAL ECG - ATRIAL FIBRILLATION WITH RAPID V-RATE MINIMAL ST DEPRESSION, INFERIOR LEADS BORDERLINE T ABNORMALITIES, INFERIOR LEADS : Confirmed by: Kathleen Alegre 01-Aug-2020 19:54:46
[2020-08-01] MEDS: ENOXAPARIN SODIUM INJ 100 MG/1 ML DISP.SYRIN SUBCUT SCH (22:20)
[2020-08-01] MEDS: FAMOTIDINE 20 MG TABLET PO SCH (22:24)
[2020-08-01 22:58] LABS: INTERNATIONAL RATION (INR) 1.04; PROTHROMBIN TIME 13.8 SEC (11.4-15.4)
[2020-08-01 22:59] LABS: FIBRINOGEN 504 mg/dL (209-497); PARTIAL THROMBOPLASTIN TIME 38.7 SEC (23.5-35.8)
[2020-08-01 23:01] LABS: D-DIMER 1.26 ug/mL (0.00-0.50)
[2020-08-01 23:03] LABS: ANION GAP 8 (5-19); BLOOD UREA NITROGEN 13 mg/dL (7-20); CALCIUM 8.3 mg/dL (8.4-10.2); CARBON DIOXIDE 28 mmol/L (22-30); CHLORIDE 97 mmol/L (98-107); GLUCOSE 207 mg/dL (75-110); POTASSIUM 3.4 mmol/L (3.6-5.0)
[2020-08-01 23:23] LABS: A TYPE INFLUENZA AG NEGATIVE (NEGATIVE); B INFLUENZA AG NEGATIVE (NEGATIVE)
[2020-08-01 23:41] LABS: C-REACTIVE PROTEIN 133.1 mg/L (<10.0)
[2020-08-02] MEDS ORDERED: ENOXAPARIN SODIUM INJ 40 MG/0.4 ML DISP.SYRIN SUBCUT SCH (10:00)
[2020-08-02 10:08] LABS: ABSOLUTE LYMPHOCYTES (AUTO) 0.8 10^3/uL (0.5-4.7); ABSOLUTE MONOCYTES (AUTO) 0.2 10^3/uL (0.1-1.4); ABSOLUTE NEUT (AUTO) 2.4 10^3/uL (1.7-8.2); BASOPHILS % (AUTO) 0.1 % (0-2); HEMATOCRIT 36.1 % (37.9-51.0); HEMOGLOBIN 12.4 g/dL (13.5-17.0); LYMPHOCYTES % (AUTO) 23.6 % (13-45); MEAN CORPUSCULAR HEMOGLOBIN 29.2 pg (27.0-33.4); MEAN CORPUSCULAR HGB CONC 34.4 g/dL (32.0-36.0); MEAN CORPUSCULAR VOLUME 85 fl (80-97); MONOCYTES % (AUTO) 5.9 % (3-13); PLATELET COUNT 145 10^3/uL (150-450); RED BLOOD COUNT 4.26 10^6/uL (4.35-5.55); RED CELL DISTRIBUTION WIDTH 14.5 % (11.5-14.0); SEGMENTED NEUTROPHILS % (AUTO) 70.4 % (42-78); TOTAL CELLS COUNTED % (AUTO) 100 %; WHITE BLOOD COUNT 3.5 10^3/uL (4.0-10.5)
[2020-08-02 10:27] LABS: ALBUMIN 3.2 g/dL (3.5-5.0); ALKALINE PHOSPHATASE 51 U/L (38-126); ANION GAP 12 (5-19); ASPARTATE AMINO TRANSFERASE 39 U/L (17-59); BILIRUBIN,DIRECT 0.3 mg/dL (0.0-0.4); BILIRUBIN,TOTAL 0.8 mg/dL (0.2-1.3); BLOOD UREA NITROGEN 14 mg/dL (7-20); CALCIUM 8.3 mg/dL (8.4-10.2); CARBON DIOXIDE 28 mmol/L (22-30); CHLORIDE 98 mmol/L (98-107); GLUCOSE 253 mg/dL (75-110); POTASSIUM 3.1 mmol/L (3.6-5.0); TOTAL PROTEIN 5.7 g/dL (6.3-8.2)
[2020-08-02] MEDS ORDERED: POTASSIUM CHLORIDE 10 MEQ TABLET.ER PO ONE ×2 (11:18→14:00)
[2020-08-02] MEDS: DOCUSATE SODIUM 100 MG CAPSULE PO SCH (11:23)
[2020-08-02] MEDS: DEXAMETHASONE 4 MG TABLET PO SCH (11:23)
[2020-08-02] MEDS: ASPIRIN 81 MG TABLET, ENT COATED PO SCH (11:23)
[2020-08-02] MEDS: FAMOTIDINE 20 MG TABLET PO SCH ×2 (11:23→21:15)
[2020-08-02] MEDS: ZINC SULFATE 220 MG CAPSULE PO SCH (11:24)
[2020-08-02] MEDS: ASCORBIC ACID 500 MG TABLET PO SCH ×2 (11:25→17:52)
[2020-08-02] MEDS: AZITHROMYCIN 250 MG TABLET PO SCH (11:25)
[2020-08-02] MEDS: LOSARTAN POTASSIUM 50 MG TABLET PO SCH (11:25)
[2020-08-02] MEDS: CHOLECALCIFEROL (D3) 1,000 UNIT (25 MCG) TABLET PO SCH (11:26)
[2020-08-02] MEDS: ENOXAPARIN SODIUM INJ 100 MG/1 ML DISP.SYRIN SUBCUT SCH ×2 (11:30→21:10)
[2020-08-02] MEDS: CEFTRIAXONE 1 GM/D5W RTU 1 GM/50 ML RTUPB IV SCH (11:33)
--- NOTE | 2020-08-02 14:00 | PDOC PROGRESS REPORT ---
Subjective Progress Note for:: 08/02/20 Subjective:: ILIA GAYTAN is a 84 year old male past medical history of paroxysmal A. fib not anticoagulated, hypertension, prediabetes, hyperlipidemia, hypothyroidism, CAD, presented to ED complaining of productive cough starting last week, patient has been checking his temperature at home, stating that it runs between 99-100, denies any chills,any exposure to anybody with COVID-19 infection, denies any recent immobilization or recent hospitalization, reporting mild prolonged chest pain induced by coughing, denies any nausea, vomiting, abdominal pain, diarrhea, constipation, numbness, tingling, headache or any urinary symptoms. In ED was noted to be in A. fib RVR which spontaneously converted back to sinus rhythm, a CTA chest showed multifocal pneumonia. Hospitalist was consulted for admission. 08/02/2020. No acute events overnight. Comfortably seen with no apparent distress, still on room air saturating WNL, cough has improved, denies any fever, chills, nausea, vomiting, diarrhea, constipation or any urinary symptoms. COVID-19 serology test is pending. Reason For Visit: MULTIFOCAL PNEUMONIA, PAROXYSMAL A. FIB Physical Exam Vital Signs: Temp Pulse Resp BP Pulse Ox 98.1 F 61 18 140/66 H 94 08/02/20 11:06 08/02/20 11:06 08/02/20 11:06 08/02/20 11:06 08/02/20 11:06 Intake & Output 08/01/20 08/02/20 08/03/20 06:59 06:59 06:59 Intake Total 1126 50 Balance 1126 50 Weight 88.3 kg General appearance: PRESENT: no acute distress, well-developed, well-nourished Head exam: PRESENT: atraumatic, normocephalic Respiratory exam: PRESENT: crackles. ABSENT: rales, rhonchi, wheezes Cardiovascular exam: PRESENT: RRR. ABSENT: diastolic murmur, rubs, systolic murmur GI/Abdominal exam: PRESENT: normal bowel sounds, soft. ABSENT: distended, guarding, mass, organolmegaly, rebound, tenderness Neurological exam: PRESENT: alert, awake, oriented to person, oriented to place, oriented to time, oriented to situation, CN II-XII grossly intact. ABSENT: motor sensory deficit Results Laboratory Results: 08/02/20 09:00 08/02/20 09:00 08/01/20 08/01/20 08/01/20 22:27 22:27 22:27 WBC RBC Hgb Hct MCV MCH MCHC RDW Plt Count Seg Neutrophils % Sodium 133.2 L Potassium 3.4 L Chloride 97 L Carbon Dioxide 28 Anion Gap 8 BUN 13 Creatinine 0.66 Est GFR ( Amer) > 60 Glucose 207 H Calcium 8.3 L Magnesium 2.1 Ferritin 165.00 Total Bilirubin AST Alkaline Phosphatase C-Reactive Protein 133.1 H Total Protein Albumin 08/02/20 08/02/20 09:00 09:00 WBC 3.5 L RBC 4.26 L Hgb 12.4 L Hct 36.1 L MCV 85 MCH 29.2 MCHC 34.4 RDW 14.5 H Plt Count 145 L Seg Neutrophils % 70.4 Sodium 137.9 Potassium 3.1 L Chloride 98 Carbon Dioxide 28 Anion Gap 12 BUN 14 Creatinine 0.61 Est GFR ( Amer) > 60 Glucose 253 H Calcium 8.3 L Magnesium Ferritin Total Bilirubin 0.8 AST 39 Alkaline Phosphatase 51 C-Reactive Protein Total Protein 5.7 L Albumin 3.2 L 08/01/20 08/01/20 08/02/20 11:55 22:27 09:00 Troponin I 0.051 0.048 0.021 NT-Pro-B Natriuret Pep 1090 H Impressions: Chest X-Ray 08/01/20 11:39 IMPRESSION: Left-sided pleural based mass versus peripheral infiltrate. This is new from prior study. CT of the chest is recommended for further evaluation. Chest/Abdomen CTA 08/01/20 13:33 IMPRESSION: 1. No PE. 2. Bilateral pneumonia. Findings discussed with Dr. Hernandes at 1628 hours. Assessment and Plan - Diagnosis (1) Multifocal pneumonia Is this a current diagnosis for this admission?: Yes Plan: Likely community-acquired caused by gram-positives including Streptococcus pneumonia, COVID-19 pneumonia is also possibility. Day #2 IV antibiotics. Day #2 IV azithromycin. Day #2 IV ceftriaxone. Continue broad-spectrum empiric IV antibiotics, zinc sulfate, vitamin D, vitamin C, flutter valve, incentive spirometry, pulmonary toileting. Inflammatory markers are not significantly elevated. Not sure if this is COVID- 19 or not but will continue for presumed COVID-19 and multifocal pneumonia at this point. (2) Paroxysmal atrial fibrillation Is this a current diagnosis for this admission?: Yes Plan: Controlled. Not anticoagulated. Continue telemetry, continue beta-blockers, outpatient PCP and cardiology follow-up. Patient has established cardiology as outpatient. Patient advised to follow-up with his cardiology to discuss the need for chronic anticoagulation. Patient does not want to consult cardiology here at [facility]. (3) Hypertension Qualifiers: Hypertension type: essential hypertension Qualified Code(s): I10 - E ssential (primary) hypertension Is this a current diagnosis for this admission?: Yes Plan: Euvolemic. Normotensive. Resume home meds. Adjust meds as needed. Outpatient PCP follow-up. (4) Prediabetes Is this a current diagnosis for this admission?: Yes Plan: Hemoglobin A1c 6.2. On Metformin at home. Diabetic diet, sliding scale insulin, Accu-Chek, hypoglycemia protocol. Resume home meds upon discharge. Outpatient PCP follow-up. (5) Hypothyroidism Qualifiers: Hypothyroidism type: acquired Qualified Code(s): E03.9 - Hypothyroidism, unspecified Is this a current diagnosis for this admission?: Yes Plan: Resume home meds. Will obtain TSH. (6) Elevated troponin Is this a current diagnosis for this admission?: Yes Plan: Troponins trending down. Denies any anginal symptoms. History of CAD, denies any anginal symptoms, mildly elevated troponins and proBNP. Likely due to demand mismatch. Continue telemetry, antiplatelets, ARB, statins, trend troponins. Have discussed the case with Dr. Deshpande who believes that elevated troponins are most likely due to demand mismatch and he does not need a cardiology consultation. Will DC cardiac consultation. If he develops any anginal symptoms we will reconsult cardiology. (7) Hypokalemia Is this a current diagnosis for this admission?: Yes Plan: No acute EKG changes. Hypokalemia protocol. - Time Time Spent with patient: 25-34 minutes Medications reviewed and adjusted accordingly: Yes Anticipated Discharge Disposition: Home, Self Care Anticipated Discharge Timeframe: within 48 hours
[2020-08-02 16:28] LABS: POTASSIUM 3.4 mmol/L (3.6-5.0)
[2020-08-03 05:35] LABS: HEMATOCRIT 33.8 % (37.9-51.0); HEMOGLOBIN 12.1 g/dL (13.5-17.0); MEAN CORPUSCULAR HEMOGLOBIN 29.9 pg (27.0-33.4); MEAN CORPUSCULAR HGB CONC 35.7 g/dL (32.0-36.0); MEAN CORPUSCULAR VOLUME 84 fl (80-97); PLATELET COUNT 164 10^3/uL (150-450); RED BLOOD COUNT 4.03 10^6/uL (4.35-5.55); RED CELL DISTRIBUTION WIDTH 14.5 % (11.5-14.0)
[2020-08-03 05:48] LABS: ANION GAP 11 (5-19); BLOOD UREA NITROGEN 18 mg/dL (7-20); CALCIUM 8.4 mg/dL (8.4-10.2); CARBON DIOXIDE 27 mmol/L (22-30); CHLORIDE 100 mmol/L (98-107); GLUCOSE 164 mg/dL (75-110); POTASSIUM 3.5 mmol/L (3.6-5.0)
[2020-08-03] MEDS: LOSARTAN POTASSIUM 50 MG TABLET PO SCH (10:23)
[2020-08-03] MEDS: ASPIRIN 81 MG TABLET, ENT COATED PO SCH (10:23)
[2020-08-03] MEDS: DOCUSATE SODIUM 100 MG CAPSULE PO SCH (10:23)
[2020-08-03] MEDS: ZINC SULFATE 220 MG CAPSULE PO SCH (10:23)
[2020-08-03] MEDS: AZITHROMYCIN 250 MG TABLET PO SCH (10:23)
[2020-08-03] MEDS: ASCORBIC ACID 500 MG TABLET PO SCH ×2 (10:24→18:17)
[2020-08-03] MEDS: CHOLECALCIFEROL (D3) 1,000 UNIT (25 MCG) TABLET PO SCH (10:24)
[2020-08-03] MEDS: DEXAMETHASONE 4 MG TABLET PO SCH (10:24)
[2020-08-03] MEDS: FAMOTIDINE 20 MG TABLET PO SCH ×2 (10:24→22:37)
[2020-08-03] MEDS: ENOXAPARIN SODIUM INJ 100 MG/1 ML DISP.SYRIN SUBCUT SCH ×2 (10:27→22:37)
[2020-08-03] MEDS: CEFTRIAXONE 1 GM/D5W RTU 1 GM/50 ML RTUPB IV SCH (10:27)
--- NOTE | 2020-08-03 16:22 | PDOC PROGRESS REPORT ---
Subjective Progress Note for:: 08/03/20 Subjective:: No adverse events overnight. No new complaints. He is on room air and has been ambulating in the room. He has been eating and drinking without difficulty. Reason For Visit: MULTIFOCAL PNEUMONIA, PAROXYSMAL A. FIB Physical Exam Vital Signs: Temp Pulse Resp BP Pulse Ox 97.5 F 64 17 145/72 H 95 08/03/20 11:20 08/03/20 11:20 08/03/20 11:20 08/03/20 11:20 08/03/20 11:20 Intake & Output 08/02/20 08/03/20 08/04/20 06:59 06:59 06:59 Intake Total 1126 1177 50 Output Total 625 Balance 1126 552 50 Weight 88.3 kg 86.7 kg General appearance: PRESENT: no acute distress, well-developed, well-nourished Head exam: PRESENT: atraumatic, normocephalic Respiratory exam: PRESENT: Clear to auscultation bilaterally. ABSENT: rales, rhonchi, wheezes, crackles. Cardiovascular exam: PRESENT: RRR. ABSENT: diastolic murmur, rubs, systolic mu rmur GI/Abdominal exam: PRESENT: normal bowel sounds, soft. ABSENT: distended, guarding, mass, organolmegaly, rebound, tenderness Neurological exam: PRESENT: alert, awake, oriented to person, oriented to place, oriented to time, oriented to situation, CN II-XII grossly intact. ABSENT: motor sensory deficit Results Laboratory Results: 08/03/20 04:49 08/03/20 04:49 08/02/20 08/03/20 08/03/20 15:08 04:49 04:49 WBC 9.0 D RBC 4.03 L Hgb 12.1 L Hct 33.8 L MCV 84 MCH 29.9 MCHC 35.7 RDW 14.5 H Plt Count 164 Sodium 137.8 Potassium 3.4 L 3.5 L Chloride 100 Carbon Dioxide 27 Anion Gap 11 BUN 18 Creatinine 0.57 Est GFR ( Amer) > 60 Glucose 164 H Calcium 8.4 Magnesium 2.3 2.4 H 08/01/20 13:10 Clean Catch Midstream Urine Culture - Final NO GROWTH 2 DAYS 08/01/20 08/01/20 08/02/20 11:55 22:27 09:00 Troponin I 0.051 0.048 0.021 NT-Pro-B Natriuret Pep 1090 H 08/02/20 15:08 Troponin I 0.019 NT-Pro-B Natriuret Pep Impressions: Chest X-Ray 08/01/20 11:39 IMPRESSION: Left-sided pleural based mass versus peripheral infiltrate. This is new from prior study. CT of the chest is recommended for further evaluation. Chest/Abdomen CTA 08/01/20 13:33 IMPRESSION: 1. No PE. 2. Bilateral pneumonia. Findings discussed with Dr. Hernandes at 1628 hours. Assessment and Plan - Diagnosis (1) COVID-19 Is this a current diagnosis for this admission?: Yes (2) Multifocal pneumonia Is this a current diagnosis for this admission?: Yes (3) Hypertension Qualifiers: Hypertension type: essential hypertension Qualified Code(s): I10 - Essential (primary) hypertension Is this a current diagnosis for this admission?: Yes (4) Hypothyroidism Qualifiers: Hypothyroidism type: acquired Qualified Code(s): E03.9 - Hypothyroidism, unspecified Is this a current diagnosis for this admission?: Yes (5) Paroxysmal atrial fibrillation Is this a current diagnosis for this admission?: Yes - Plan Summary Summary: He is on Decadron and on empiric antibacterial therapy. He is not on antiviral therapy because he is not hypoxic. If he has a good night overnight we will probably discharge him home in the morning. - Time Time Spent with patient: 15-24 minutes Anticipated Discharge Disposition: Home, Self Care Anticipated Discharge Timeframe: within 24 hours
[2020-08-04 05:43] LABS: ABSOLUTE LYMPHOCYTES (AUTO) 1.5 10^3/uL (0.5-4.7); ABSOLUTE MONOCYTES (AUTO) 0.8 10^3/uL (0.1-1.4); BASOPHILS % (AUTO) 0.4 % (0-2); HEMATOCRIT 33.4 % (37.9-51.0); HEMOGLOBIN 11.9 g/dL (13.5-17.0); LYMPHOCYTES % (AUTO) 18.5 % (13-45); MEAN CORPUSCULAR HGB CONC 35.7 g/dL (32.0-36.0); MEAN CORPUSCULAR VOLUME 84 fl (80-97); MONOCYTES % (AUTO) 9.1 % (3-13); PLATELET COUNT 196 10^3/uL (150-450); RED BLOOD COUNT 3.99 10^6/uL (4.35-5.55); RED CELL DISTRIBUTION WIDTH 14.5 % (11.5-14.0); TOTAL CELLS COUNTED % (AUTO) 100 %; WHITE BLOOD COUNT 8.3 10^3/uL (4.0-10.5)
[2020-08-04 06:04] LABS: ALBUMIN 2.9 g/dL (3.5-5.0); ALKALINE PHOSPHATASE 49 U/L (38-126); ANION GAP 9 (5-19); ASPARTATE AMINO TRANSFERASE 40 U/L (17-59); BILIRUBIN,DIRECT 0.3 mg/dL (0.0-0.4); BILIRUBIN,TOTAL 0.5 mg/dL (0.2-1.3); BLOOD UREA NITROGEN 17 mg/dL (7-20); CALCIUM 8.2 mg/dL (8.4-10.2); CARBON DIOXIDE 30 mmol/L (22-30); CHLORIDE 99 mmol/L (98-107); GLUCOSE 141 mg/dL (75-110); POTASSIUM 3.4 mmol/L (3.6-5.0); TOTAL PROTEIN 5.4 g/dL (6.3-8.2)
[2020-08-04] MEDS: ENOXAPARIN SODIUM INJ 100 MG/1 ML DISP.SYRIN SUBCUT SCH (09:09)
[2020-08-04] MEDS: ASCORBIC ACID 500 MG TABLET PO SCH (09:10)
[2020-08-04] MEDS: ZINC SULFATE 220 MG CAPSULE PO SCH (09:10)
[2020-08-04] MEDS: FAMOTIDINE 20 MG TABLET PO SCH (09:10)
[2020-08-04] MEDS: DOCUSATE SODIUM 100 MG CAPSULE PO SCH (09:11)
[2020-08-04] MEDS: LOSARTAN POTASSIUM 50 MG TABLET PO SCH (09:11)
[2020-08-04] MEDS: AZITHROMYCIN 250 MG TABLET PO SCH (09:11)
[2020-08-04] MEDS: CHOLECALCIFEROL (D3) 1,000 UNIT (25 MCG) TABLET PO SCH (09:11)
[2020-08-04] MEDS: DEXAMETHASONE 4 MG TABLET PO SCH (09:11)
[2020-08-04] MEDS: CEFTRIAXONE 1 GM/D5W RTU 1 GM/50 ML RTUPB IV SCH (09:12)
[2020-08-04] MEDS: ASPIRIN 81 MG TABLET, ENT COATED PO SCH (09:13)
[2020-08-04 12:12] VITALS: BP 157/67
--- NOTE | 2020-08-04 16:37 | PDOC DISCHARGE SUMMARY ---
Impression - Admit/DC Date/PCP Admission Date/Primary Care Provider: 08/01/20 17:09 RADHA HZANG MD Discharge Date: 08/04/20 - Discharge Diagnosis (1) COVID-19 Is this a current diagnosis for this admission?: Yes (2) Multifocal pneumonia Is this a current diagnosis for this admission?: Yes (3) Hypertension Is this a current diagnosis for this admission?: Yes (4) Hypothyroidism Is this a current diagnosis for this admission?: Yes (5) Paroxysmal atrial fibrillation Is this a current diagnosis for this admission?: Yes - Assessment Summary: He is on Decadron and on empiric antibacterial therapy. He is not on antiviral therapy because he is not hypoxic. If he has a good night overnight we will probably discharge him home in the morning. - Additional Information Resuscitation Status: Full Code Discharge Diet: Cardiac, Diabetic Discharge Activity: Activity As Tolerated, Balance Activity w/Rest Referrals: RADHA ZHANG MD [Primary Care Provider] - 08/11/20 9:00 am (7-10 days) Home Medications: Alfuzosin HCl [Alfuzosin HCl ER] 10 mg PO QAM 02/12/19 Amlodipine Besylate [Norvasc 10 mg Tablet] 10 mg PO QAM 02/12/19 Aspirin [Aspirin 81 mg Chewable Tablet] 81 mg PO QA 02/12/19 Atorvastatin Calcium [Lipitor 40 mg Tablet] 80 mg PO QA 02/12/19 Cyanocobalamin (Vitamin B-12) [Vitamin B-12 1000 mcg Tablet] 1,000 mcg PO QAM 02/12/19 Finasteride [Proscar 5 mg Tablet] 5 mg PO QAM 02/12/19 Levothyroxine Sodium [Synthroid 0.025 mg Tablet] 0.05 mg PO Q6AM 02/12/19 Losartan Potassium [Cozaar 100 mg Tablet] 100 mg PO QAM 02/12/19 Metformin HCl [Glucophage 500 mg Tablet] 1,000 mg PO WSUPPER 02/12/19 History of Present Illiness History of Present Illness: ILIA GAYTAN is a 84 year old male past medical history of paroxysmal A. fib not anticoagulated, hypertension, prediabetes, hyperlipidemia, hypothyroidism, CAD, presented to ED complaining of productive cough starting last week, patient has been checking his temperature at home, stating that it runs between 99-100, denies any chills,any exposure to anybody with COVID-19 infection, denies any recent immobilization or recent hospitalization, reporting mild prolonged chest pain induced by coughing, denies any nausea, vomiting, abdominal pain, diarrhea, constipation, numbness, tingling, headache or any urinary symptoms. In ED was noted to be in A. fib RVR which spontaneously converted back to sinus rhythm, a CTA chest showed multifocal pneumonia. Hospitalist was consulted for admission. Hospital Course Hospital Course: Patient responded very well to steroids. He did not require antiviral treatment. He was on room air and breathing comfortably and ambulating on room air without getting short of breath at time of discharge. He will resume his usual home medications. He is about 9 days out from when his symptoms first started, so I told him to continue to maintain the appropriate precautions for another day or 2 and according to our current level of knowledge with this virus he should not be contagious after that point. He verbalizes understanding. His labs and examination were reassuring and he was discharged in stable condition. Physical Exam Vital Signs: Temp Pulse Resp BP Pulse Ox 98.0 F 60 19 157/67 H 93 08/04/20 12:00 08/04/20 12:00 08/04/20 12:00 08/04/20 12:00 08/04/20 12:00 Intake & Output 08/03/20 08/04/20 08/05/20 06:59 06:59 06:59 Intake Total 1177 1327 780 Output Total 625 600 200 Balance 552 727 580 Weight 86.7 kg 87.2 kg General appearance: PRESENT: no acute distress, well-developed, well-nourished Head exam: PRESENT: atraumatic, normocephalic Respiratory exam: PRESENT: Clear to auscultation bilaterally. ABSENT: rales, rhonchi, wheezes, crackles. Cardiovascular exam: PRESENT: RRR. ABSENT: diastolic murmur, rubs, systolic murmur GI/Abdominal exam: PRESENT: normal bowel sounds, soft. ABSENT: distended, guarding, mass, organolmegaly, rebound, tenderness Neurological exam: PRESENT: alert, awake, oriented to person, oriented to place, oriented to time, oriented to situation, CN II-XII grossly intact. ABSENT: motor sensory deficit Results Laboratory Results: WBC 8.3 10^3/uL (4.0-10.5) 08/04/20 04:56 RBC 3.99 10^6/uL (4.35-5.55) L 08/04/20 04:56 Hgb 11.9 g/dL (13.5-17.0) L 08/04/20 04:56 Hct 33.4 % (37.9-51.0) L 08/04/20 04:56 MCV 84 fl (80-97) 08/04/20 04:56 MCH 30.0 pg (27.0-33.4) 08/04/20 04:56 MCHC 35.7 g/dL (32.0-36.0) 08/04/20 04:56 RDW 14.5 % (11.5-14.0) H 08/04/20 04:56 Plt Count 196 10^3/uL (150-450) 08/04/20 04:56 Lymph % (Auto) 18.5 % (13-45) 08/04/20 04:56 [place] % (Auto) 9.1 % (3-13) 08/04/20 04:56 Eos % (Auto) 0.0 % (0-6) 08/04/20 04:56 Baso % (Auto) 0.4 % (0-2) 08/04/20 04:56 Absolute Neuts (auto) 6.0 10^3/uL (1.7-8.2) 08/04/20 04:56 Absolute Lymphs (auto) 1.5 10^3/uL (0.5-4.7) 08/04/20 04:56 Absolute Monos (auto) 0.8 10^3/uL (0.1-1.4) 08/04/20 04:56 Absolute Eos (auto) 0.0 10^3/uL (0.0-0.6) 08/04/20 04:56 Absolute Basos (auto) 0.0 10^3/uL (0.0-0.2) 08/04/20 04:56 Seg Neutrophils % 72.0 % (42-78) 08/04/20 04:56 PT 13.8 SEC (11.4-15.4) 08/01/20 22:27 INR 1.04 08/01/20 22:27 APTT 38.7 SEC (23.5-35.8) H 08/01/20 22:27 Fibrinogen 504 mg/dL (209-497) H 08/01/20 22:27 D-Dimer 1.26 ug/mL (0.00-0.50) H 08/01/20 22:27 Sodium 137.8 mmol/L (137-145) 08/04/20 04:56 Potassium 3.4 mmol/L (3.6-5.0) L 08/04/20 04:56 Chloride 99 mmol/L (98-107) 08/04/20 04:56 Carbon Dioxide 30 mmol/L (22-30) 08/04/20 04:56 Anion Gap 9 (5-19) 08/04/20 04:56 BUN 17 mg/dL (7-20) 08/04/20 04:56 Creatinine 0.65 mg/dL (0.52-1.25) 08/04/20 04:56 Est GFR ( Amer) > 60 (>60) 08/04/20 04:56 Est GFR (MDRD) Non-Af > 60 (>60) 08/04/20 04:56 Glucose 141 mg/dL (75-110) H 08/04/20 04:56 Lactic Acid 1.6 mmol/L (0.7-2.1) 08/01/20 11:55 Calcium 8.2 mg/dL (8.4-10.2) L 08/04/20 04:56 Magnesium 2.4 mg/dL (1.6-2.3) H 08/03/20 04:49 Ferritin 165.00 ng/mL (17.9-464.0) 08/01/20 22:27 Total Bilirubin 0.5 mg/dL (0.2-1.3) 08/04/20 04:56 Direct Bilirubin 0.3 mg/dL (0.0-0.4) 08/04/20 04:56 Neonat Total Bilirubin Not Reportable 08/04/20 04:56 Neonat Direct Bilirubin Not Reportable 08/04/20 04:56 Neonat Indirect Bili Not Reportable 08/04/20 04:56 AST 40 U/L (17-59) 08/04/20 04:56 ALT 46 U/L (<50) 08/04/20 04:56 Alkaline Phosphatase 49 U/L (38-126) 08/04/20 04:56 Lactate Dehydrogenase 263 U/L (120-246) H 08/01/20 22:27 Troponin I 0.019 ng/mL 08/02/20 15:08 C-Reactive Protein 133.1 mg/L (<10.0) H 08/01/20 22:27 NT-Pro-B Natriuret Pep 1090 pg/mL (<450) H 08/01/20 11:55 Total Protein 5.4 g/dL (6.3-8.2) L 08/04/20 04:56 Albumin 2.9 g/dL (3.5-5.0) L 08/04/20 04:56 Urine Color YELLOW 08/01/20 13:10 Urine Appearance CLEAR 08/01/20 13:10 Urine pH 5.0 (5.0-9.0) 08/01/20 13:10 Ur Specific [place] 1.015 08/01/20 13:10 Urine Protein 30 mg/dL (NEGATIVE) H 08/01/20 13:10 Urine Glucose (UA) 150 mg/dL (NEGATIVE) H 08/01/20 13:10 Urine Ketones NEGATIVE mg/dL (NEGATIVE) 08/01/20 13:10 Urine Blood SMALL (NEGATIVE) H 08/01/20 13:10 Urine Nitrite NEGATIVE (NEGATIVE) 08/01/20 13:10 Urine Bilirubin NEGATIVE (NEGATIVE) 08/01/20 13:10 Urine Urobilinogen NEGATIVE mg/dL (<2.0) 08/01/20 13:10 Ur Leukocyte Esterase NEGATIVE (NEGATIVE) 08/01/20 13:10 Urine WBC (Auto) 1 /HPF 08/01/20 13:10 Urine RBC (Auto) 1 /HPF 08/01/20 13:10 Urine Mucus (Auto) RARE /LPF 08/01/20 13:10 Urine Ascorbic Acid NEGATIVE (NEGATIVE) 08/01/20 13:10 COVID-19 Source See comment 08/01/20 13:20 COVID-19 (MYKEL) DETECTED (Not Detect) A 08/01/20 13:20 Influenza A (Rapid) NEGATIVE (NEGATIVE) 08/01/20 22:30 Influenza B (Rapid) NEGATIVE (NEGATIVE) 08/01/20 22:30 Group A Strep Rapid NEGATIVE (NEGATIVE) 08/01/20 22:30 08/01/20 08/01/20 08/02/20 11:55 22:27 09:00 Troponin I 0.051 0.048 0.021 NT-Pro-B Natriuret Pep 1090 H 08/02/20 15:08 Troponin I 0.019 NT-Pro-B Natriuret Pep Impressions: Chest X-Ray 08/01/20 11:39 IMPRESSION: Left-sided pleural based mass versus peripheral infiltrate. This is new from prior study. CT of the chest is recommended for further evaluation. Chest/Abdomen CTA 08/01/20 13:33 IMPRESSION: 1. No PE. 2. Bilateral pneumonia. Findings discussed with Dr. Hernandes at 1628 hours. Plan Time Spent: Greater than 30 Minutes Stroke Is this a Stroke Patient?: No Acute Heart Failure Is this a Heart Failure Patient?: No
== END 2020-08-04 14:52 | disposition home or self-care (01) | DRG 177 ==
LOC: ER 10:37 → EH 17:09 → 3N 20:54
PROVIDERS: ADMIT Internal Medicine; ATTEND Family Medicine
DX: U07.1 COVID-19 (principal); J12.89 Other viral pneumonia; I48.91 Unspecified atrial fibrillation; I10 Essential (primary) hypertension; E87.6 Hypokalemia; R73.03 Prediabetes; R79.89 Other specified abnormal findings of blood chemistry; E03.9 Hypothyroidism, unspecified; I48.0 Paroxysmal atrial fibrillation; E78.5 Hyperlipidemia, unspecified; I25.10 Atherosclerotic heart disease of native coronary artery without angina pectoris; Z79.899 Other long term (current) drug therapy; Z79.82 Long term (current) use of aspirin; Z87.891 Personal history of nicotine dependence; Z82.3 Family history of stroke; Z82.49 Family history of ischemic heart disease and other diseases of the circulatory system
CPT/HCPCS: 36415; 71045; 71275; 80048; 80053; 81001; 82728; 83605; 83615; 83735; 83880; 84132; 84484; 85025; 85027; 85379; 85384; 85610; 85730; 86140; 87040; 87070; 87086; 87635; 87804; 87880; 93005; 93010; 96361; 96365; 96367; 99285; C9803; J0456; J0696; J1100; J1650; J3480; J3490; J7030; J8540